=== PATIENT | female | born 1995 ===

== ENCOUNTER 2016-10-13 14:09 | Emergency (ER) | payer MEDICAID ==
[2016-10-13 14:30] VITALS: BMI 30.9
[2016-10-13 14:39] VITALS: TEMP 98.6
--- NOTE | 2016-10-13 14:58 | ED PDOC ---
Addendum entered and electronically signed by Freddie CONTRERAS,Katharina Clements PA-C 05/23 15:46: Addendum Addendum: 10/16/16 15:45 Pt called, urine culture shows beta hemolytic strep, sensitive to pcn. Pt informed of the following results, Rx for amoxicillin sent to her pharmacy - [facility]. Original Note: Arrival/HPI - General Chief Complaint: Abdominal Pain Time Seen by Provider: 10/13/16 14:28 Historian: Patient - History of Present Illness Narrative History of Present Illness (Text): 10/13/16 14:50 This 21 yo female, , Gravid 5 weeks, 2 days, with pmh ectopic , presents to this ED c/o right pelvic pain, and suprapubic pain since this morning. Pain is mild non-radiating, stabbing, and constant. Patient denies urinary frequency, urgency, or hematuria. Denies vaginal discharge, vaginal discharge, sob, cp, n/v, rectal bleeding, fever, sick contact, recent travel, leg swelling, dizziness, vomiting, or abnormal gait.. LMP: 09-07-2016 Pregnacy Test done on 10-03-2016 Time/Duration: Other (since this morning) Context: Home Past Medical History - Provider Review Nursing Documentation Reviewed: Yes - Infectious Disease Hx of Infectious Diseases: None - Psychiatric Hx Substance Use: No - Surgical History Hx Section: Yes (x1) Other/Comment: miscarriage x1 - Anesthesia Hx Anesthesia: Yes Hx Anesthesia Reactions: No Family/Social History - Physician Review Nursing Documentation Reviewed: Yes Family/Social History: No Known Family HX Smoking Status: Never Smoked Hx Alcohol Use: No Hx Substance Use: No Allergies/Home Meds Allergies/Adverse Reactions: Allergies No Known Allergies Allergy (Verified 10/13/16 14:30) Review of Systems - Review of Systems Constitutional: Normal. absent: Fatigue, Weight Change, Fevers, Night Sweats Eyes: Normal ENT: Normal Respiratory: Normal Cardiovascular: Normal Gastrointestinal: Abdominal Pain (suprapubic pain), Nausea, Other (Pelvic pain) . absent: Constipation, Diarrhea, Vomiting Genitourinary Female: Normal. absent: Dysuria, Frequency, Hematuria, Urine Output Changes, Vaginal Bleeding, Vaginal Discharge Musculoskeletal: Normal Skin: Normal. absent: Rash Neurological: Normal Endocrine: Normal Hemo/Lymphatic: Normal Psychiatric: Normal Physical Exam Vital Signs Temp Pulse Resp BP Pulse Ox 10/13/16 17:12 69 18 118/67 98 10/13/16 15:54 76 18 121/69 98 10/13/16 14:10 98.6 F 85 18 123/72 98 Temperature: Afebrile Blood Pressure: Normal Pulse: Regular Respiratory Rate: Normal Appearance: Positive for: Well-Appearing, Non-Toxic, Comfortable Pain Distress: None Mental Status: Positive for: Alert and Oriented X 3 - Systems Exam Head: Present: Atraumatic, Normocephalic Pupils: Present: PERRL Extroacular Muscles: Present: EOMI Conjunctiva: Present: Normal Mouth: Present: Moist Mucous Membranes Neck: Present: Normal Range of Motion Respiratory/Chest: Present: Clear to Auscultation, Good Air Exchange. No: Respiratory Distress, Accessory Muscle Use Cardiovascular: Present: Regular Rate and Rhythm, Normal S1, S2. No: Murmurs Abdomen: Present: Normal Bowel Sounds, Other ((+) obese abdomen). No: Tenderness, Distention, Peritoneal Signs, Rebound, Guarding Back: Present: Normal Inspection. No: CVA Tenderness Upper Extremity: Present: Normal Inspection, Normal ROM, NORMAL PULSES, Neurovascularly Intact, Capillary Refill < 2s. No: Cyanosis, Edema Lower Extremity: Present: Normal Inspection, NORMAL PULSES, Normal ROM, Neurovascularly Intact, Capillary Refill < 2 s. No: Edema, CALF TENDERNESS, Temperature Abnormalties Neurological: Present: GCS=15, CN II-XII Intact, Speech Normal, Motor Func Grossly Intact, Normal Sensory Function, Normal Cerebellar Funct, Gait Normal Skin: Present: Warm, Dry, Normal Color. No: Rashes Psychiatric: Present: Alert, Oriented x 3 Medical Decision Making ED Course and Treatment: 10/13/16 17:47 Re-evaluation. Patient feels better. Discussed results and plan with patient who expresses understanding. All questions answered and there is agreement with the plan to discharge home with instructions. Patient stable for discharge. Return if symptoms persist or worsen. Patient was recommended to see her [facility] [employer] doctor in 1-2 days for revaluation, and to have Beta Quant. test repeated in 2-3 days. To return to emergency if symptoms worsen. Re-evaluation Time: 17:47 Reassessment Condition: Re-examined, Improved - Lab Interpretations Lab Results: 10/13/16 16:23 10/13/16 16:23 Lab Results 10/13/16 17:15: Blood Type Confirm O POSITIVE 10/13/16 16:23: Blood Type O POSITIVE, Antibody Screen Negative, BBK History Checked No verified bt 10/13/16 16:23: Beta HCG, Quant 30155.00 H 10/13/16 16:23: Sodium 139, Potassium 3.9, Chloride 101, Carbon Dioxide 27, Anion Gap 15, BUN 7, Creatinine 0.6, Est GFR ( Amer) > 60, Est GFR (Non- Af Amer) > 60, Random Glucose 75, Calcium 9.2, Total Bilirubin 0.8, AST 31, ALT 40, Alkaline Phosphatase 123, Total Protein 7.8, Albumin 4.3, Globulin 3.6, Albumin/Globulin Ratio 1.2 10/13/16 16:23: PT 11.8, INR 1.09 H, APTT 32.9 H 10/13/16 16:23: WBC 7.8, RBC 4.92, Hgb 12.6, Hct 38.2, MCV 77.6 L, MCH 25.6, MCHC 33.0, RDW 17.0 H, Plt Count 319, MPV 10.4, Gran % 68.7 H, Lymph % (Auto) 26.6, [place] % (Auto) 3.9, Eos % (Auto) 0.5 L, Baso % (Auto) 0.3, Gran # 5.34, Lymph # 2.1, Hudson # 0.3, Eos # 0.0, Baso # 0.02 10/13/16 14:58: Urine Color Yellow, Urine Appearance Clear, Urine pH 7.0, Ur Specific [place] 1.020, Urine Protein Negative, Urine Glucose (UA) Negative, Urine Ketones Negative, Urine Blood Negative, Urine Nitrate Negative, Urine Bilirubin Negative, Urine Urobilinogen 0.2, Ur Leukocyte Esterase Negative, Urine HCG, Qual Positive - RAD Interpretation Narrative RAD Interpretations (Text): 10/13/16 17:47 Accession No. : [id number] Patient Name / ID : FREEDOM ELY / [id number] Exam Date : 10/13/2016 15:16:26 ( Approved ) Study Comment : Sex / Age : F / 21Y Creator : DR. Corina Gomez MD Dictator : Corina King MD Utility Worker : Collections Manager : Corina King MD Approver2 : Report Date : 10/13/2016 17:38:04 My Comment : Indication: Right pelvic pain Comparison: None available. Technique: Transvaginal pelvic ultrasound. Findings: The uterus measures approximately 9.9 x 4.2 x 5.3 cm. Retroverted. Cervix length measures approximately 4.0 cm. Intrauterine gestational sac measures 1.4 cm and is compatible with a gestational age of 5 weeks 4 days. No evidence of yolk sac or pole at this time. The right ovary measures 3.5 x 4.3 x 2.7 cm. 1.9 x 1.7 x 1.8 cm anechoic avascular lesion, likely cyst. The left ovary measures 2.0 x 1.4 x 1.2 cm. Blood flow was demonstrated to both ovaries. Small pelvic free fluid. Impression: Intrauterine gestational sac measures 1.4 cm and is compatible with a gestational age of 5 weeks 4 days. No evidence of yolk sac or pole at this time. Correlate clinically including OB-[employer] [employer] consultation and quantitative beta HCG. 1.9 x 1.7 x 1.8 cm anechoic avascular lesion, likely cyst. Small pelvic free fluid. Radiology Orders: 10/13/16 14:52 OB TRANSVAGINAL [US] Stat Disposition/Present on Arrival - Present on Arrival Any Indicators Present on Arrival: No History of DVT/PE: No History of Uncontrolled Diabetes: No Urinary Catheter: No History of Decub. Ulcer: No History Surgical Site Infection Following: None - Disposition Have Diagnosis and Disposition been Completed?: Yes Diagnosis: Pelvic pain affecting in first trimester, antepartum Disposition: HOME/ ROUTINE Disposition Time: 17:56 Patient Plan: Discharge Condition: GOOD Discharge Instructions (ExitCare): First Trimester (ED) Additional Instructions: Call private [employer] doctor for follow up visit in 1-2 days. Take medication as instructed. Have Beta Quant. blood test repeat in 2-3 days. Return to emergency if pain worsen, vaginal bleeding, urinary symptoms, or any other symptoms. Review urine culture in 2-3 days with your doctor. Prescriptions: Vit No.129/Iron/Folic [ One Daily Tablet] 1 each PO DAILY #30 tablet Referrals: [facility] [Outside] - [facility] with [facility] [[facility]] - Follow up with primary Forms: WORK NOTE
[2016-10-13 15:57] LABS: URINE APPEARANCE CLEAR (CLEAR); URINE BILIRUBIN NEGATIVE (NEGATIVE); URINE BLOOD NEGATIVE (NEGATIVE); URINE COLOR YELLOW (YELLOW); URINE GLUCOSE (UA) NEGATIVE (NEGATIVE); URINE KETONE NEGATIVE (NEGATIVE); URINE LEUKOCYTE ESTERASE NEGATIVE Leu/uL (NEGATIVE); URINE PROTEIN NEGATIVE mg/dL (<30 mg/dL); URINE UROBILINOGEN 0.2 E.U./dL (<1 E.U./dL)
[2016-10-13 16:30] LABS: ADD MANUAL DIFF? NO
[2016-10-13 16:41] LABS: BASO # 0.02 [, K/mm3] (0.0-2.0); BASO % 0.3 % (0.0-3.0); EOS % 0.5 % (1.5-5.0); GRAN # 5.34 (1.4-6.5); GRAN % 68.7 % (50.0-68.0); HEMATOCRIT 38.2 % (36.0-48.0); LYMPH # 2.1 (1.2-3.4); LYMPH % 26.6 % (22.0-35.0); MEAN CELL VOLUME 77.6 fL (80.0-105.0); MEAN CORPUSCULAR HEMOGLOBIN 25.6 pg (25.0-35.0); MEAN PLATELET VOLUME 10.4 fl (7.0-11.0); MONO # 0.3 (0.1-0.6); MONO % 3.9 % (1.0-6.0); PLATELET COUNT 319 [, 10^3/uL] (120.0-450.0); WHITE BLOOD COUNT 7.8 [, 10^3/ul] (4.5-11.0)
[2016-10-13 16:45] LABS: ALB/GLOB RATIO 1.2 (1.1-1.8); ALKALINE PHOSPHATASE 123 U/L (38-133); ALT/SGPT 40 U/L (7-56); AST/SGOT 31 U/L (15-39); BILIRUBIN,TOTAL 0.8 mg/dL (0.2-1.3); BLOOD UREA NITROGEN 7 mg/dL (7-21); CALCIUM 9.2 mg/dL (8.4-10.5); CARBON DIOXIDE 27 mmol/L (21-33); CHLORIDE 101 mmol/L (98-107); GFR AFRICAN-AMERICAN > 60; GLUCOSE,RANDOM 75 mg/dL (70-110); INR 1.09 (0.93-1.08); PARTIAL THROMBOPLASTIN TIME 32.9 Seconds (23.7-30.8); POTASSIUM 3.9 mmol/L (3.6-5.0); SODIUM 139 mmol/L (132-148); TOTAL PROTEIN 7.8 g/dL (5.8-8.3)
--- NOTE | 2016-10-13 17:39 | US ---
Indication: Right pelvic pain Comparison: None available. Technique: Transvaginal pelvic ultrasound. Findings: The uterus measures approximately 9.9 x 4.2 x 5.3 cm. Retroverted. Cervix length measures approximately 4.0 cm. Intrauterine gestational sac measures 1.4 cm and is compatible with a gestational age of 5 weeks 4 days. No evidence of yolk sac or pole at this time. The right ovary measures 3.5 x 4.3 x 2.7 cm. 1.9 x 1.7 x 1.8 cm anechoic avascular lesion, likely cyst. The left ovary measures 2.0 x 1.4 x 1.2 cm. Blood flow was demonstrated to both ovaries. Small pelvic free fluid. Impression: Intrauterine gestational sac measures 1.4 cm and is compatible with a gestational age of 5 weeks 4 days. No evidence of yolk sac or pole at this time. Correlate clinically including OB-[employer] consultation and quantitative beta HCG. 1.9 x 1.7 x 1.8 cm anechoic avascular lesion, likely cyst. Small pelvic free fluid.
[2016-10-13 18:56] VITALS: BP 120/72; PULSE 70; RESP 16; O2SAT 100
== END 2016-10-13 18:39 | disposition home or self-care (01) ==
LOC: ED 14:09
DX: O26.91 Pregnancy related conditions, unspecified, first trimester (principal); Z3A.01 Less than 8 weeks gestation of pregnancy; R10.2 Pelvic and perineal pain